=== PATIENT | male | born 1960 | race Caucasian/White ===

== ENCOUNTER 2019-10-31 08:30 | Outpatient (RCR) | payer BC, SELFPAY | END 2019-10-31 08:35 | disposition home or self-care (01) | LOC: PT 08:30 | PROVIDERS: Visit Provider Orthopaedic Surgery | DX: M54.5 Low back pain (principal); M51.36 Other intervertebral disc degeneration, lumbar region; M19.90 Unspecified osteoarthritis, unspecified site | CPT/HCPCS: 20560; 20561; 97010; 97014; 97035; 97110; 97140; 97163; G0283 ==

== ENCOUNTER 2021-03-25 17:00 | Emergency (ER) | payer BC, SELFPAY ==
[2021-03-25 17:30] VITALS: BP 138/75; PULSE 86; RESP 19; TEMP 36.8; O2SAT 97; BMI 38.6
--- NOTE | 2021-03-25 18:14 | HMH.EDUTC ---
[facility] [place] Clinical Impression: Foot ulcer Qualifiers: Laterality: right Non-pressure ulcer stage: unspecified non-pressure ulcer stage Qualified Code(s): L97.519 - Non-pressure chronic ulcer of other part of right foot with unspecified severity Disposition: Home, Self-Care Condition on Discharge: Good Instructions: DI for Diabetic Foot Ulcer, Diabetic Foot Ulcer, Clindamycin Additional Instructions: Clean foot well as directed and apply betadine bandage daily as you was instructed in the [facility] Follow up with your Family Doctor and Podiatry as you was instructed call tomorrow for appointment Return if needed Straight to ER if any life threatening symptoms Avoid tight fitting shoes Prescriptions: clindamycin HCL [Clindamycin HCl] 300 mg PO TID 10 Days #30 cap Transmission Status: Pending to [email or web address] #[id number] Referrals: Provider,Referral, [Primary Care Provider] - As needed Cydney Bland DPM [Staff Physician] - Time of Disposition: 18:31 Medical Decision Making - Anish Inquiry Pt receiving controlled substance: No Anish was queried for this patient: No Vital Signs: 03/25/21 17:30 Temperature 98.3 F Temperature Source Oral Pulse Rate [Right Brachial] 86 Respiratory Rate 19 Blood Pressure [Right Arm] 138/75 Blood Pressure Mean [Right Arm] 96 Blood Pressure Source [Right Arm] Automatic Cuff Blood Pressure Position [Right Arm] Sitting 02 Sat by Pulse Oximetry 97 Oxygen Delivery Method Room Air Medical Decision Narrative: Ulcer area on foot cleaned well and betadine soaked bandage placed on open blister like lesion and then secured in place with kerlix patient verbalized understanding of how to bandage foot [facility] - General Stated complaint: foot ulcer Time Seen by Provider: 03/25/21 18:00 Mode of Arrival: Ambulatory Source of Information: Patient Limitations: No Limitations Description of Symptoms (Recalled from Triage Doc. by RN): PATIENT C/O SORE TO RIGHT FOOT THAT HE NOTICED THIS MORNING. PATIENT STATES THAT HE IS DIABETIC HEENT Symptoms (Recalled from RN notes): No Resp Symptoms (Recalled from RN notes): No Skin Symptoms (Recalled from RN notes): Yes MS Symptoms (Recalled from RN notes): No Functional Status (Recalled from RN notes): WNL - History of Present Illness Provider Complaint: Patient state that he is a diabetic and he tries to watch his feet for ulcers States that he noticed that he had an open blister like area on the side of his right foot below little toe States that area is not draining but he was concerned and wanted to come in and get some antibitoics until he can get into his PCP or Podiatry - Related Data Previous Rx's Medication Instructions Recorded clindamycin HCL [Clindamycin HCl] 300 mg PO TID 10 Days #30 cap 03/25/21 Allergies Allergy/AdvReac Type Severity Reaction Status Date / Time aspirin Allergy Verified 03/25/21 18:03 - Worker's Comp Is this a Worker's Comp case?: No [facility] History - Hepatitis A Screen Drug use history?: No High risk sexual behaviors?: No History of sexually transmitted infection?: No Currently employed?: No Childcare worker?: No Do you have indoor plumbing?: Yes Do you have electricity?: Yes Attestation statement:: This patient has been screened for Hepatitis A risk factors. I have reviewed the patient's past medical history: Yes ROS Obtained: Yes All systems reviewed & no additional complaints, Yes Systems reviewed as appropriate & no additional complaints - Constitutional Constitutional: Reports system reviewed and no additional complaints, except as docu, Denies body ache, Denies chills, Denies fever(s) - ENT Ears, Nose, Mouth, and Throat: Reports system reviewed and no additional complaints, except as docu - Cardiovascular Cardiovascular: Reports system reviewed and no additional complaints, except as docu - Respiratory Respiratory: Reports system reviewed and no additional complaints, except as
[2021-03-25 18:34] VITALS: BP 138/75; PULSE 86; RESP 19; TEMP 36.8; O2SAT 97
== END 2021-03-25 18:44 | disposition home or self-care (01) ==
PROVIDERS: Emergency Provider Nurse Practitioner
DX: E11.621 Type 2 diabetes mellitus with foot ulcer (principal); L97.411 Non-pressure chronic ulcer of right heel and midfoot limited to breakdown of skin
CPT/HCPCS: 99202; G0463

== ENCOUNTER → 2021-09-08 14:36 | Outpatient (CLI) | payer BC, SELFPAY ==
[2021-09-08 16:24] LABS: Thyroid Stimulating Hormone 5.89 uIU/mL (0.465-4.68)
== END ==
PROVIDERS: Visit Provider Internal Medicine
DX: E03.9 Hypothyroidism, unspecified (principal)
CPT/HCPCS: 36415; 84443

== ENCOUNTER → 2022-02-03 10:12 | Outpatient (CLI) | payer BC, SELFPAY ==
[2022-02-03 11:10] LABS: Basophils # 0.1 K/mm3 (0-0.2); Basophils % 0.4 % (0.1-2.0); Eosinophils # 0.4 K/mm3 (0.0-0.4); Eosinophils % 3.9 % (0.1-12.0); Hematocrit 41.1 % (42.0-52.0); Hemoglobin 13.3 g/dL (14.1-18.0); Lymphocytes # 1.1 K/mm3 (0.7-4.5); Lymphocytes % 10.4 % (10-50); Mean Corpuscular HGB Conc 32.3 g/dL (31.8-35.4); Mean Corpuscular Hemoglobin 29.5 pg (27.0-31.2); Mean Corpuscular Volume 91.2 fl (80-94); Mean Platelet Volume 7.8 fl (7.4-10.4); Monocytes # 0.5 K/mm3 (0.1-1.0); Monocytes % 4.6 % (1.7-9.3); Neutrophils # 8.6 K/mm3 (1.8-7.8); Neutrophils % 80.7 % (37.0-80.0); Platelet Count 261 K/mm3 (142-424); Red Blood Count 4.51 M/mm3 (4.60-6.20); Red Cell Distribution Width 13.7 % (11.5-17.5); White Blood Count 10.7 K/mm3 (4.8-10.8)
[2022-02-03 11:30] LABS: Albumin Level 3.7 g/dl (3.5-5.0); Blood Urea Nitrogen 31 mg/dl (9-20); Calcium 8.6 mg/dl (8.4-10.2); Carbon Dioxide 25 mmol/L (22.0-30.0); Chloride 103 mmol/L (98-107); Estimated Glomerular Filt Rate 29 ml/min (>60); GFR (African American) 35 ML/MIN (>60); Glucose 258 mg/dl (74-100); Phosphorous 3.8 mg/dl (2.5-4.5); Sodium 139 mmol/L (136-145)
[2022-02-03 11:39] LABS: Intact Parathyroid Hormone 123.7 pg/mL (7.5-53.5)
[2022-02-03 12:18] LABS: Creatinine,Urine Random 84 mg/dL (Not Estab.)
[2022-02-03 12:21] LABS: Microalbumin/Creatinine Ratio 208.6
[2022-02-03 13:20] LABS: 25-OH Vitamin D, Total 19.4 ng/mL (30-100)
== END ==
PROVIDERS: Visit Provider Internal Medicine Nephrology
DX: N18.4 Chronic kidney disease, stage 4 (severe) (principal)
CPT/HCPCS: 36415; 80069; 82043; 82306; 82570; 83970; 85025

== ENCOUNTER → 2022-02-08 14:01 | Outpatient (POV) | payer BC, SELFPAY | PROVIDERS: Visit Provider Internal Medicine Nephrology | DX: Z00.00 Encounter for general adult medical examination without abnormal findings (principal) ==

== ENCOUNTER → 2022-06-09 12:35 | Outpatient (CLI) | payer BC, SELFPAY ==
[2022-06-09 13:37] LABS: Albumin Level 3.8 g/dl (3.5-5.0); Anion Gap 13.3 mEq/L (5-15); Blood Urea Nitrogen 43 mg/dl (9-20); Calcium 8.3 mg/dl (8.4-10.2); Carbon Dioxide 20 mmol/L (22.0-30.0); Chloride 108 mmol/L (98-107); Estimated Glomerular Filt Rate 28 ml/min (>60); GFR (African American) 34 ML/MIN (>60); Glucose 297 mg/dl (74-100); Phosphorous 4.5 mg/dl (2.5-4.5); Potassium 5.3 mmoL/L (3.5-5.1); Sodium 136 mmol/L (136-145)
[2022-06-09 13:54] LABS: 25-OH Vitamin D, Total 56.6 ng/mL (30-100)
== END ==
PROVIDERS: PCP Internal Medicine Nephrology; Visit Provider Internal Medicine Nephrology
DX: N18.32 Chronic kidney disease, stage 3b (principal); I10 Essential (primary) hypertension; D63.8 Anemia in other chronic diseases classified elsewhere; N25.0 Renal osteodystrophy
CPT/HCPCS: 36415; 80069; 82306

== ENCOUNTER → 2022-06-14 11:30 | Outpatient (POV) | payer BC, SELFPAY | PROVIDERS: Visit Provider Internal Medicine Nephrology | DX: Z00.00 Encounter for general adult medical examination without abnormal findings (principal) ==

== ENCOUNTER → 2022-09-13 10:09 | Outpatient (POV) | payer BC, SELFPAY | PROVIDERS: Visit Provider Nurse Practitioner | DX: Z00.00 Encounter for general adult medical examination without abnormal findings (principal) ==

== ENCOUNTER 2023-06-09 11:39 | Outpatient (CLI) | payer MEDICARE, BC, SELFPAY ==
[2023-06-09 11:55] LABS: Microscopic, Urine URINE MICROSCOPIC (MICROSCOPIC)
[2023-06-09 12:13] LABS: Hematocrit 46.4 % (42.0-52.0); Mean Corpuscular HGB Conc 32.3 g/dL (31.8-35.4); Mean Corpuscular Hemoglobin 30.2 pg (27.0-31.2); Mean Corpuscular Volume 93.6 fl (80-94); Platelet Count 247 K/mm3 (142-424); Red Blood Count 4.96 M/mm3 (4.60-6.20); White Blood Count 9.9 K/mm3 (4.8-10.8)
[2023-06-09 12:15] LABS: Appearance,Urine CLEAR (Clear); Bilirubin,Urine Negative (Negative); Blood, Urine Negative (Negative); Color,Urine YELLOW (Yellow); Glucose,Urine (UA) 3+ (Negative); Ketones,Urine Negative (Negative); Leukocyte Esterase,Urine Negative (Negative); Nitrate,Urine Negative (Negative); Protein,Urine TRACE (Negative); Specific Gravity, Urine 1.015 (1.005-1.030); Urobilinogen,Urine 0.2 EU/dl (0.2)
[2023-06-09 12:26] LABS: Bacteria,Urine Trace /lpf; Squamous Epithelial Cell,Urine Occasional #/hpf (0-5)
[2023-06-09 12:43] LABS: Albumin Level 3.9 g/dl (3.5-5.0); Anion Gap 11.4 mEq/L (5-15); Blood Urea Nitrogen 35 mg/dl (9-20); Carbon Dioxide 27 mmol/L (22.0-30.0); Chloride 107 mmol/L (98-107); Estimated Glomerular Filt Rate 26 ml/min (>60); GFR (African American) 32 ML/MIN (>60); Glucose 154 mg/dl (74-100); Phosphorous 4.3 mg/dl (2.5-4.5); Potassium 4.4 mmoL/L (3.5-5.1); Sodium 141 mmol/L (136-145)
[2023-06-09 12:48] LABS: Creatinine,Urine Random 82 mg/dL (Not Estab.); Microalbumin/Creatinine Ratio 253.4
[2023-06-09 12:54] LABS: Intact Parathyroid Hormone 118.6 pg/mL (7.5-53.5)
[2023-06-09 12:59] LABS: 25-OH Vitamin D, Total 86.4 ng/mL (30-100)
== END 2023-06-09 23:59 | disposition home or self-care (01) ==
LOC: LAB 11:40
PROVIDERS: Visit Provider Nurse Practitioner
DX: N18.32 Chronic kidney disease, stage 3b (principal)
CPT/HCPCS: 36415; 80069; 81001; 82043; 82306; 82570; 83970; 84155; 85014; 85018; 85048; 85049

== ENCOUNTER 2023-08-30 12:44 | Outpatient (CLI) | payer MEDICARE, BC, SELFPAY ==
[2023-08-30 13:39] LABS: Chol/HDL Ratio 3.8 (1-3.5); Cholesterol 139 mg/dl (140-200); HDL Cholesterol 37 mg/dl (40-60); Triglycerides 143 mg/dl (30-150); VLDL Cholesterol 29 mg/dL (0-40)
[2023-08-30 13:50] LABS: Direct LDL Cholesterol 69.12 mg/dL (100-129)
== END 2023-08-30 23:59 | disposition home or self-care (01) ==
LOC: LAB 12:45
PROVIDERS: Visit Provider Nurse Practitioner Family
DX: E11.69 Type 2 diabetes mellitus with other specified complication (principal); Z79.4 Long term (current) use of insulin
CPT/HCPCS: 36415; 80061

== ENCOUNTER 2023-10-05 10:50 | Outpatient (CLI) | payer MEDICARE, BC, SELFPAY ==
[2023-10-05 10:58] LABS: Microscopic, Urine URINE MICROSCOPIC (MICROSCOPIC)
[2023-10-05 11:18] LABS: Appearance,Urine CLEAR (Clear); Bilirubin,Urine Negative (Negative); Blood, Urine Negative (Negative); Color,Urine YELLOW (Yellow); Glucose,Urine (UA) 3+ (Negative); Ketones,Urine Negative (Negative); Leukocyte Esterase,Urine Negative (Negative); Nitrate,Urine Negative (Negative); PH,Urine 5.5 (5.0-8.5); Protein,Urine Negative (Negative); Specific Gravity, Urine 1.015 (1.005-1.030); Urobilinogen,Urine 0.2 EU/dl (0.2)
[2023-10-05 11:28] LABS: Bacteria,Urine Trace /lpf; Squamous Epithelial Cell,Urine Occasional #/hpf (0-5)
[2023-10-05 11:29] LABS: Creatinine,Urine Random 86 mg/dL (Not Estab.)
[2023-10-05 11:32] LABS: Microalbumin/Creatinine Ratio 94.5
[2023-10-05 11:39] LABS: Chloride 109 mmol/L (98-107); Potassium 5.8 mmoL/L (3.5-5.1); Sodium 137 mmol/L (136-145)
[2023-10-05 11:40] LABS: Albumin Level 3.6 g/dl (3.5-5.0)
[2023-10-05 11:42] LABS: Anion Gap 13.8 mEq/L (5-15); Blood Urea Nitrogen 45 mg/dl (9-20); Calcium 8.3 mg/dl (8.4-10.2); Carbon Dioxide 20 mmol/L (22.0-30.0); Estimated Glomerular Filt Rate 24 ml/min (>60); GFR (African American) 29 ML/MIN (>60); Glucose 217 mg/dl (74-100)
[2023-10-05 12:08] LABS: Hematocrit 42.1 % (42.0-52.0); Hemoglobin 13.4 g/dL (14.1-18.0); Mean Corpuscular HGB Conc 31.9 g/dL (31.8-35.4); Mean Corpuscular Hemoglobin 29.9 pg (27.0-31.2); Mean Corpuscular Volume 93.8 fl (80-94); Platelet Count 199 K/mm3 (142-424); Red Blood Count 4.49 M/mm3 (4.60-6.20); Red Cell Distribution Width 14.6 % (11.5-17.5); White Blood Count 8.9 K/mm3 (4.8-10.8)
== END 2023-10-05 23:59 | disposition home or self-care (01) ==
LOC: LAB 10:51
PROVIDERS: Visit Provider Nurse Practitioner
DX: N18.4 Chronic kidney disease, stage 4 (severe) (principal)
CPT/HCPCS: 36415; 80069; 81001; 82043; 82570; 84156; 85014; 85018; 85048; 85049

== ENCOUNTER 2024-02-13 11:02 | Outpatient (CLI) | payer MEDICARE, BC, SELFPAY ==
[2024-02-13 12:07] LABS: Hemoglobin 14.3 g/dL (14.1-18.0); Mean Corpuscular HGB Conc 34.9 g/dL (31.8-35.4); Mean Corpuscular Hemoglobin 31.4 pg (27.0-31.2); Mean Corpuscular Volume 89.8 fl (80-94); Platelet Count 213 K/mm3 (142-424); Red Blood Count 4.56 M/mm3 (4.60-6.20); Red Cell Distribution Width 14.2 % (11.5-17.5); White Blood Count 8.8 K/mm3 (4.8-10.8)
[2024-02-13 12:25] LABS: Chloride 108 mmol/L (98-107)
[2024-02-13 12:26] LABS: Albumin Level 3.8 g/dl (3.5-5.0); Potassium 4.8 mmoL/L (3.5-5.1); Sodium 139 mmol/L (136-145)
[2024-02-13 12:28] LABS: Blood Urea Nitrogen 45 mg/dl (9-20); Estimated Glomerular Filt Rate 23 ml/min (>60); GFR (African American) 28 ML/MIN (>60)
[2024-02-13 12:29] LABS: Anion Gap 18.8 mEq/L (5-15); Calcium 8.5 mg/dl (8.4-10.2); Carbon Dioxide 17 mmol/L (22.0-30.0); Glucose 184 mg/dl (74-100); Phosphorous 4.4 mg/dl (2.5-4.5)
[2024-02-13 13:33] LABS: Microscopic, Urine URINE MICROSCOPIC (MICROSCOPIC)
[2024-02-13 14:58] LABS: Appearance,Urine CLEAR (Clear); Bilirubin,Urine Negative (Negative); Blood, Urine Negative (Negative); Color,Urine YELLOW (Yellow); Glucose,Urine (UA) 3+ (Negative); Ketones,Urine Negative (Negative); Leukocyte Esterase,Urine Negative (Negative); Nitrate,Urine Negative (Negative); PH,Urine 5.5 (5.0-8.5); Protein,Urine Negative (Negative); Specific Gravity, Urine 1.015 (1.005-1.030); Urobilinogen,Urine 0.2 EU/dl (0.2)
== END 2024-02-13 23:59 | disposition home or self-care (01) ==
PROVIDERS: Visit Provider Nurse Practitioner
DX: R79.9 Abnormal finding of blood chemistry, unspecified (principal); I10 Essential (primary) hypertension
CPT/HCPCS: 80069; 81001; 82043; 84156; 85027

== ENCOUNTER 2024-08-02 16:26 | Outpatient (CLI) | payer MEDICARE, BC, SELFPAY ==
[2024-08-02 17:17] LABS: Hematocrit 42.6 % (42.0-52.0); Hemoglobin 14.1 g/dL (14.1-18.0); Mean Corpuscular HGB Conc 33.1 g/dL (31.8-35.4); Mean Corpuscular Hemoglobin 30.4 pg (27.0-31.2); Mean Corpuscular Volume 91.8 fl (80-94); Nucleated Red Blood Cells # 0 10^3/uL; Nucleated Red Blood Cells % 0 %; Platelet Count 254 K/mm3 (142-424); Red Blood Count 4.64 M/mm3 (4.60-6.20); Red Cell Distribution Width 13.4 % (11.5-17.5); Red Cell Distribution Width-SD 45.2 fL; White Blood Count 9.1 K/mm3 (4.8-10.8)
[2024-08-02 17:55] LABS: Appearance,Urine CLEAR (Clear); Bilirubin,Urine Negative (Negative); Blood, Urine NEGATIVE (Negative); Color,Urine YELLOW (Yellow); Glucose,Urine (UA) 3+ (Negative); Ketones,Urine Negative (Negative); Leukocyte Esterase,Urine NEGATIVE (Negative); Nitrate,Urine NEGATIVE (Negative); PH,Urine 5.5 (5.0-8.5); Protein,Urine NEGATIVE (Negative); Urobilinogen,Urine 0.2 EU/dl (0.2)
[2024-08-02 19:07] LABS: Albumin Level 3.7 g/dl (3.5-5.0); Anion Gap 13.4 mEq/L (5-15); Blood Urea Nitrogen 39 mg/dl (9-20); Calcium 8.8 mg/dl (8.4-10.2); Carbon Dioxide 19 mmol/L (22.0-30.0); Chloride 113 mmol/L (98-107); Estimated Glomerular Filt Rate 24 ml/min (>60); GFR (African American) 29 ML/MIN (>60); Glucose 122 mg/dl (74-100); Phosphorous 3.9 mg/dl (2.5-4.5); Potassium 5.4 mmoL/L (3.5-5.1); Sodium 140 mmol/L (136-145)
[2024-08-02 19:19] LABS: Intact Parathyroid Hormone 127.2 pg/mL (7.5-53.5)
[2024-08-02 19:31] LABS: 25-OH Vitamin D, Total 96.6 ng/mL (30-100)
[2024-08-02 19:40] LABS: Creatinine,Urine Random 79 mg/dL (Not Estab.)
== END 2024-08-02 23:59 | disposition home or self-care (01) ==
LOC: LAB 16:28
PROVIDERS: Visit Provider Nurse Practitioner
DX: N18.4 Chronic kidney disease, stage 4 (severe) (principal)
CPT/HCPCS: 36415; 80069; 81003; 82306; 82570; 83970; 84156; 85027

== ENCOUNTER 2024-10-11 09:54 | Outpatient (CLI) | payer MEDICARE, BC, SELFPAY ==
--- OUTSIDE RECORDS SUMMARY | 2024-10-10 11:20 | XMS_ITS | Encounter Summary ---
Author Organization [facility] Address [address] [place] [address] Care Team Providers Care Plier Worker Name Role Phone Pcp, No Primary Care Provider Unavailabl e Reason for Referral * Consultation (Routine) - Authorized Specialty Diagnoses / Procedures Referred By Contac t Referred To Contact Diagnoses Type 2 diabetes mellitus with other specified complication, without long-term current use of insulin (CMS/HCC) Evelin Johnson MD [address] [address] Phone: tel: fax: Referral ID Status Reason Start Date Expiration Date V isits Requested Visits Authorized [id number] Authorized 10/10/2024 04/11/2026 1 1 Reason for Visit * Reason Comments Type 2 diabetes mellitus with other spec ified complication, Encounter Details Date Type Department Care Team (Late st Contact Info) Description 10/10/2024 11:20 AM EDT Office Visit [facility] Endocrinology [address] [place] [address] Evelin Johnson MD [address] [address] Type 2 diabetes mellitus with other specified complication, without long-term current use of insulin (CMS/HCC) (Primary Dx) Social History Tobacco Use Types Packs/Day Years Used Date Smoking Tobacco: Former Cigarettes Q uit: 1994 Passive Smoke Exposure: Past Smokeless Tobacco: Current Snuff Alcohol Use Standard Drinks/Week Comments Yes 0 (1 standard drink = 0.6 oz pur e alcohol) social. PHQ-2 Answer Date Recorded Patient Health Questionnaire-2 Score 0 03/01/2023 AUDIT-C Answer Date Recorded Q1: How often do you have a drink containing alcohol? 2-3 times a week 10/10/2024 Q2: How many drinks containi ng alcohol do you have on a typical day when you are drinking? Patient does not drink Q3: How often do you have si x or more drinks on one occasion? Never 10/10/2024 PHQ-2A Answer Date Recorded Patient Health Questionnaire-2 Score 0 03/01/2023 Sex and Gender Information Value Date Recorded Sex Assigned at Not on file Legal Sex Male 7:33 PM EDT Gender Identity Not on file Sexual Orientation Not on file documented as of this encounter Last Filed Vital Signs Vital Sign Reading Time Taken Comments Blood Pressure 131/73 10/10/2024 11:14 AM EDT Pulse 81 10/10/2024 11:14 AM EDT Temperature - - Respiratory Rate - - Oxygen Saturation - - Inhaled Oxygen Concentration - - Weight 130 kg (287 lb 7.7 oz) 10/10/2024 11:14 A M EDT Height 182.9 cm (6') 10/10/2024 11:14 AM EDT Body Mass Index 38.99 10/10/2024 11:14 AM EDT documented in this encounter Functional Status * AUDIT-C Score Answer Date of Assessment Author 3 10/10/2024 11:18 AM EDT Nisreen Mata * Question Answer Date of Assessment Author Q1: How often do you have a drink containing alcohol? 2-3 times a week 10/10/2024 11:18 AM EDT Lalita Mata Q2: How many drinks containing alcohol do you have on a typical day when you are drinking? Patient does not drink 10/10/2024 11:18 AM EDT Lalita Mata Q3: How often do you have six or more drinks on one occasion? Never 10/10/2024 11:18 AM EDT Lalita Mata documented as of this encounter Miscellaneous Notes * Progress Notes - Bridgett Blackmon MBBS - 10/10/2024 11:20 AM EDT Chief complaint: DM type 2 and hypotyroidism HPI Luis Laguna is a 63 y.o. male who presents for follow up. No illness or hospitalizations since previous visit. #Diabetes Mellitus type 2: - Diagnosed 2017 - Last visit 04/2024 - Complications include: nephropathy and peripheral neuropathy - A1c today is 5.8 (from 6.4 from 04/2024) - Current treatment includes : - januvia 100mg daily - glimepiride 4mg daily with breakfast- hypoglycemia improved after reducing the dose last visit - farxiga 10 mg daily - Failed/Discontinued meds: premix insulin - does check blood glucose at home, ranging from 100-150s - Hypoglycemia awareness: intact - denies recent hypoglycemic events. - Compliance at present is estimated to be excellent. - Retinopathy Evaluation: Last eye exam was <1 year, no reported DR - Neuropathy Evaluation: Endorses Neuropathy, not currently on medication - Nephropathy: has CKD and nephropathy, followed by nehrology - ASCVD: no stroke or heart attack. Review of Systems Constitutional: Negative for fatigue and unexpected weight change. Eyes: Negative for visual disturbance. Cardiovascular: Negative for palpitations. Gastrointestinal: Negative for abdominal pain, nausea and vomiting. Endocrine: Negative for cold intolerance and heat intolerance. Neurological: Negative for light-headedness and headaches. Psychiatric/Behavioral: Negative for confusion. The following portions of the chart were reviewed this encounter and updated as appropriate: Past Medical History: Diagnosis Date Cellulitis of unspecified part of limb Cellulitis of foot Conversions - Other Cellulitis Conversions - Other Cellulitis Of The Left First Toe Conversions - Other Cellulitis Of The Right Knee Conversions - Other Dependence On Nicotine In Tobacco Product Conversions - Other Sinusitis Conversions - Other Skin Abscess Personal history of other endocrine, nutritional and metabolic disease History of fluid overload Personal history of other endocrine, nutritional and metabolic disease History of hyperkalemia Personal history of other endocrine, nutritional and metabolic disease History of vitamin D deficiency Type 2 diabetes mellitus History reviewed. No pertinent surgical history. Social History Tobacco Use Smoking status: Former Current packs/day: 0.00 Types: Cigarettes Quit date: 1994 Years since quittin.5 Passive exposure: Past Smokeless tobacco: Current Types: Snuff Vaping Use Vaping status: Never Used Substance Use Topics Alcohol use: Yes Comment: social. Drug use: No Comment: Drug use: No illicit drug use Family History Problem Relation Name Age of Onset Brain Tumor Other Breast cancer Mother Diabetes Other Uterine cancer Other Current Outpatient Medications Medication Instructions atorvastatin (LIPITOR) 40 mg, Oral, Nightly carvedilol (COREG) 25 mg, Oral, 2 times daily with meals cholecalciferol (VITAMIN D-3) 5,000 Units, Oral, Daily dapagliflozin (FARXIGA) 10 mg, Oral, Daily glimepiride (AMARYL) 4 mg, Oral, Daily before breakfast glucose blood ([employer] Ultra) test strip USE TO TEST 3 TO 4 TIMES DAILY levothyroxine (SYNTHROID, LEVOXYL) 100 mcg, Oral, Daily, Patient must attend follow-up on 03/01/24 for additional refills. NIFEdipine CC (ADALAT CC) 60 mg, Oral, 2 times daily, Do not crush, chew, or split. pen needle, diabetic (B-D UF III MINI PEN NEEDLES) 31G X 5 MM misc USE 2 PEN NEEDLES DAILY SITagliptin (Januvia) 100 MG tablet TAKE 1 TABLET DAILY sodium bicarbonate 650 mg, Oral, 2 times daily valsartan (DIOVAN) 80 mg, Oral, Daily Visit Vitals BP 131/73 Pulse 81 Ht 1.829 m (6') Wt 130 kg (287 lb 7.7 oz) BMI 38.99 kg/m?? Smoking Status Former BSA 2.57 m?? Physical Exam Constitutional: Appearance: Normal appearance. Eyes: Pupils: Pupils are equal, round, and reactive to light. Cardiovascular: Rate and Rhythm: Normal rate and regular rhythm. Pulses: Normal pulses. Heart sounds: Normal heart sounds. Pulmonary: Effort: Pulmonary effort is normal. Breath sounds: Normal breath sounds. Abdominal: General: Abdomen is flat. Palpations: Abdomen is soft. Musculoskeletal: General: Normal range of motion. Skin: General: Skin is warm. Neurological: General: No focal deficit present. Mental Status: He is alert and oriented to person, place, and time. Recent labs Lab Results Component Value Date HGBA1C 5.8 10/10/2024 Assessment and Plan: Diabetes Mellitis Type 2, is controlled - A1c today is 5.8 (from 6.4 on 04/2024) - Current treatment includes : - januvia 100mg daily - glimepiride 4mg daily with breakfast- hypoglycemia improved after reducing the dose last visit - farxiga 10 mg daily - Failed/Discontinued meds: premix insulin PLAN: No Rx changes. A1c low at 5.8 today with no reported hypoglycemia. However, patient is checking BG at night when he takes meds so may be missing lows during the day. Will have patient check his BG intermittently during the day. IF hypoglycemic events, will decrease medication regimen 2. Obesity Body mass index is 38.99 kg/m??. Encouraged healthy diet and regular exercise 3. HTN - BP at goal this visit. Continue BP meds 4. HL- LDL above goal, will check lipid panel when fasting next visit, continue statin 5. Hypothyroidism- TSH 04/2024 1.6; continue 100 mcg daily RTC in 6 months. Bridgett Blackmon MD Internal Medicine, PGY 3 Cosigned by Evelin Johnson MD at 10/10/2024 11:36 AM EDT Associated attestation - Evelin Johnson MD - 10/10/2024 11:36 AM EDT I saw and evaluated the patient with the resident/fellow. I discussed the case with the resident/fellow and agree with the findings and plan as documented. I personally spent a total of 30 minutes on this encounter. This time includes encounter with patient, counseling, discussion, reviewing chart, interpreting data and/or coordination of care. documented in this encounter Plan of Treatment Upcoming Encounters Date Type Department Care Team (Late st Contact Info) Description 12/21/2024 9:40 AM EDT Office Visit [facility] [address] [place] [address] Neema Apodaca, HEATHER [address] [address] 04/15/2025 11:20 AM EST Office Visit [facility] Endocrinology [facility] [place] [address] Evelin Johnson MD [address] [address] Scheduled Orders Name Type Priority Associated Diagnoses Orde r Schedule Lipid panel Lab Routine Type 2 diabetes mellitus with other specified complication, without long-term current use of insulin (CMS/HCC) Expected: 10/10/2024 (Approximate), Expires: 10/10/2025 Scheduled Referrals Name Type Priority Associated Diagnoses Orde r Schedule Follow Up [facility] Outpatient Referral Routine Type 2 diabetes mellitus with other specified complication, without long-term current use of insulin (CMS/HCC) Expected: 04/12/2025, Expires: 04/13/2026 documented as of this encounter Procedures Procedure Name Priority Date/Time Associated Diagnosis Comments POCT GLYCOSYLATED HEMOGLOBIN (HGB A1C) Routine 10/10/2024 11:25 AM EDT Type 2 diabetes mellitus with other specified complication, without long-term current use of insulin (CMS/[facility]) documented in this encounter Results * POCT glycosylated hemoglobin (Hb A1C) (10/10/2024 11:25 AM EDT) POCT Hemoglobin A1C 5.8 <5.7% Non-Diabet ic % [facility] Kit Lot Number [id number] [facility] Kit Expiration Date 06/2026 [facility] Blood Venous blood specimen / Unknown 10/10/2024 11:25 AM EDT Evelin Johnson MD POINT OF CARE TEST ENTER/EDIT ORDERABLES Final Result [facility] [address] [place] [address] documented in this encounter Visit Diagnoses Diagnosis Type 2 diabetes mellitus with other specified complication, without long-term current use of insulin (CMS/[facility])- Primary documented in this encounter Additional Health Concerns Assessment Noted Time A fall risk assessment has been complete d for the patient 06/13/2023 12:52 PM EST A Body Mass Index follow-up plan has been documented for the patient 10/10/2024 11:36 AM EDT documented as of this encounter Care Teams Plier Worker Relationship Specialty Start Date End Date Pcp, No [address] [place] [address] PCP - General Family Medicine 04/12/24 documented as of this encounter
--- OUTSIDE RECORDS SUMMARY | 2024-10-11 10:00 | XMS_ITS | Encounter Summary ---
Author Organization Healthcare Address [address] [place] [address] Care Team Providers Care Industrial Maintenance Manager Name Role Phone Walter Michael MD Primary Care Provider [phone] Joshua Bee DO Primary Care Provider None, None Primary Care Provider Pcp, No Primary Care Provider Unavailabl e Reason for Visit * Reason Comments Med Refill Encounter Details Date Type Department Care Team (Late st Contact Info) Description 10/05/2022 Refill [facility] Endocrinology [address] [place] [address] Sonia Fong MD [address] [address] Type 2 diabetes mellitus without complication, with long-term current use of insulin ([facility]) Social History Tobacco Use Types Packs/Day Years Used Date Smoking Tobacco: Former Cigarettes Q uit: 1994 Passive Smoke Exposure: Past Smokeless Tobacco: Current Snuff Alcohol Use Standard Drinks/Week Comments No 0 (1 standard drink = 0.6 oz pur e alcohol) PHQ-2 Answer Date Recorded Patient Health Questionnaire-2 Score 0 06/22/2021 Sex and Gender Information Value Date Recorded Sex Assigned at Not on file Legal Sex Male 7:33 PM EDT Gender Identity Not on file Sexual Orientation Not on file documented as of this encounter Miscellaneous Notes * Telephone Encounter - Faby Reese R - 10/05/2022 12:12 PM EDT Per protocol, 1 medication(s), januvia, has been approved for 90 day supply with 0 refill(s) to [facility]. documented in this encounter Plan of Treatment Upcoming Encounters Date Type Department Care Team (Late st Contact Info) Description 12/21/2024 9:40 AM EDT Office Visit [facility] [address] [place] [address] Neema Apodaca, EVP CHIEF EXPLORATION OFFICER [address] [facility] [address] [place] [address] 04/15/2025 11:20 AM EST Office Visit [facility] Endocrinology [address] [place] [address] Evelin Johnson MD [address] [facility] [address] [place] [address] documented as of this encounter Visit Diagnoses Diagnosis Type 2 diabetes mellitus without complication, with long-term current use of insulin documented in this encounter Additional Health Concerns Assessment Noted Time A fall risk assessment has been complete d for the patient 06/18/2022 10:18 AM EST A Body Mass Index follow-up plan has been documented for the patient 09/13/2022 10:46 AM EDT documented as of this encounter Care Teams Industrial Maintenance Manager Relationship Specialty Start Date End Date Walter Michael MD [address] [place] [address] [place] [address] PCP - General Family Medicine 09/26/20 10/11/22 Joshua Bee DO [address] [place] [id number] PCP - General 10/12/22 12/07/22 None, None [address] [place] [address] PCP - General NONE FOUND 03/01/23 11/03/23 Pcp, No [address] [place] [address] PCP - General Family Medicine 04/12/24 documented as of this encounter
--- OUTSIDE RECORDS SUMMARY | 2024-10-11 10:00 | XMS_ITS | Encounter Summary ---
Author Organization Healthcare Address [address] [place] [address] Care Team Providers Care Licensing Director Name Role Phone Walter Michael MD Primary Care Provider [phone] Joshua Bee DO Primary Care Provider None, None Primary Care Provider [phone] Pcp, No Primary Care Provider Unavailabl e Reason for Visit * Reason Comments Med Refill Encounter Details Date Type Department Care Team (Late Contact Info) Description 11/30/2021 Refill [facility] Nephrology, Bone & Mineral Metabolism [address], [address] [place] [address] Levar Allen MD [address] [place] [address] Social History Tobacco Use Types Packs/Day Years Used Date Smoking Tobacco: Former Smokeless Tobacco: Never Alcohol Use Standard Drinks/Week Comments No 0 (1 standard drink = 0.6 oz pur e alcohol) PHQ-2 Answer Date Recorded Patient Health Questionnaire-2 Score 0 06/22/2021 Sex and Gender Information Value Date Recorded Sex Assigned at Not on file Legal Sex Male 7:33 PM EDT Gender Identity Not on file Sexual Orientation Not on file documented as of this encounter Plan of Treatment Upcoming Encounters Date Type Department Care Team (Late Contact Info) Description 12/21/2024 9:40 AM EDT Office Visit [facility] [address] [place] [address] Neema Apodaca, MANAGER DEVELOPMENT [address] [place] [address] 04/15/2025 11:20 AM EST Office Visit [facility] Endocrinology [address] [place] [address] Evelin Johnson MD [address] [facility] [address] [place] [address] documented as of this encounter Visit Diagnoses Not on filedocumented in this encounter Additional Health Concerns Assessment Noted Time A fall risk assessment has been complete d for the patient 06/22/2021 1:43 PM EDT documented as of this encounter Care Teams Licensing Director Relationship Specialty Start Date End Date Walter Michael MD [address] [place] [address] [place] [address] PCP - General Family Medicine 09/26/20 10/11/22 Joshua Bee DO [address] [place], [place] [id number] PCP - General 10/12/22 12/07/22 None, None [address] [place] [address] PCP - General NONE FOUND 03/01/23 11/03/23 Pcp, No [address] [place] [address] PCP - General Family Medicine 04/12/24 documented as of this encounter
--- OUTSIDE RECORDS SUMMARY | 2024-10-11 10:00 | XMS_ITS | Encounter Summary ---
Author Organization Healthcare Address [address] [place] [address] Care Team Providers Care Solar Energy Advisor Name Role Phone Pcp, No Primary Care Provider Unavailabl e Encounter Details Date Type Department Care Team (Latest Contact Info) Description 10/10/2024 Travel Social History Tobacco Use Types Packs/Day Years [...] on file documented as of this encounter Functional Status * AUDIT-C Score Answer Date of Assessment Author 3 10/10/2024 11:18 AM Nisreen Ellsworth * Question Answer Date of Assessment Author Q1: How often do you have a drink containing alcohol? 2-3 times a week 10/10/2024 11:18 AM Lalita Ellsworth Q2: How many drinks containing alcohol do you have on a typical day when you are drinking? Patient does not drink 10/10/2024 11:18 AM EDT Lalita Mata Q3: How often do you have six or more drinks on one occasion? Never 10/10/2024 11:18 AM EDT Lalita Mata documented as of this encounter Plan of Treatment Upcoming Encounters Date Type Department Care Team (Late st Contact Info) Description 12/21/2024 9:40 AM EDT Office Visit [facility] [address] [place] [address] Neema Apodaca, COMPUTER PROGRAMMER [address] [facility] [address] [place] [address] 04/15/2025 11:20 AM EST Office Visit [facility] Endocrinology [address] [place] [address] Evelin Johnson MD [address] [place] [address] documented as of this encounter Visit Diagnoses Not on filedocumented in this encounter Additional Health Concerns Assessment Noted Time A fall risk assessment has been complete d for the patient 06/13/2023 12:52 PM EST A Body Mass Index follow-up plan has been documented for the patient 10/10/2024 11:36 AM EDT documented as of this encounter Care Teams Solar Energy Advisor Relationship Specialty Start Date End Date Pcp, [place] [address] PCP - General Family Medicine 04/12/24 documented as of this encounter
--- OUTSIDE RECORDS SUMMARY | 2024-10-11 10:00 | XMS_ITS | Encounter Summary ---
Author Organization Healthcare Address [address] [place] [address] Care Team Providers Care Sat Instructor Name Role Phone Walter Michael MD Primary Care Provider [phone] Joshua Bee DO Primary Care Provider [phone] None, None Primary Care Provider Pcp, No Primary Care Provider Unavailabl e Reason for Visit * Reason Comments Med Refill Encounter Details Date Type Department Care Team (Late Contact Info) Description 04/08/2022 [facility] [address] [place] [address] Sonia Fong MD [address] [address] Type 2 diabetes mellitus without complication, with long-term current use of insulin ([facility]) (Primary Dx) Social History Tobacco Use Types [...] Description 12/21/2024 9:40 AM EDT Office Visit [facility] [address] [place] [address] Neema Apodaca, WALLPAPER INSTALLER [address] [facility] [address] [place] [address] 04/15/2025 11:20 AM EST Office Visit [facility] Endocrinology [address] [place] [address] Evelin Johnson MD 2195 [facility] 125 [place] [address] documented as of this encounter Visit Diagnoses Diagnosis Type 2 diabetes mellitus without complication, with long-term current use of insulin- Primary documented in this encounter Additional Health Concerns Assessment Noted Time A fall risk assessment has been complete d for the patient 06/22/2021 1:43 PM EDT documented as of this encounter Care Teams Sat Instructor Relationship Specialty Start Date End Date Walter Michael MD [address] [place] [address] Dr Tenorio [place] [id number] PCP - General Family Medicine 09/26/20 10/11/22 Joshua Bee DO [address] [place] [address] PCP - General 10/12/22 12/07/22 None, None [address] [place] [address] PCP - General NONE FOUND 03/01/23 11/03/23 Pcp, No [address] [place] [address] PCP - General Family Medicine 04/12/24 documented as of this encounter
--- OUTSIDE RECORDS SUMMARY | 2024-10-11 10:00 | XMS_ITS | Encounter Summary ---
Author Organization Healthcare Address [address] [place] [address] Care Team Providers Care Meter Repair Shop Supervisor Name Role Phone Walter Michael MD Primary Care Provider [phone] Joshua Bee DO Primary Care Provider [phone] None, None Primary Care Provider [phone] Pcp, No Primary Care Provider Unavailabl e Reason for Visit * Reason Comments Med Refill Encounter Details Date Type Department Care Team (Late Contact Info) Description 11/19/2021 [facility] [address] [place] [address] Sonia Fong MD 2195 [facility] 125 [place] [address] Social History Tobacco Use Types Packs/Day Years [...] Description 12/21/2024 9:40 AM EDT Office Visit [facility] [address] [place] [address] Neema Apodaca, DYE TUB TENDER [address] [facility] [address] [place] [address] 04/15/2025 11:20 AM EST Office Visit [facility] Endocrinology [address] [place] [address] Evelin Johnson MD [address] [place] [address] documented as of this encounter Visit Diagnoses Not on filedocumented in this encounter Additional Health Concerns Assessment Noted Time A fall risk assessment has been complete d for the patient 06/22/2021 1:43 PM EDT documented as of this encounter Care Teams Meter Repair Shop Supervisor Relationship Specialty Start Date End Date Walter Michael MD [address] [place] [address] [place] [address] PCP - General Family Medicine 09/26/20 10/11/22 Joshua Bee DO [address] [place], [place] [id number] PCP - General 10/12/22 12/07/22 None, None [address] [place] [address] PCP - General NONE FOUND 03/01/23 11/03/23 Pcp, No [address] [place] [address] PCP - General Family Medicine 04/12/24 documented as of this encounter
--- OUTSIDE RECORDS SUMMARY | 2024-10-11 10:00 | XMS_ITS | Encounter Summary ---
Author Organization Healthcare Address [address] [place] [address] Care Team Providers Care Process Tank Tender Name Role Phone Walter Michael MD Primary Care Provider [phone] Joshua Bee DO Primary Care Provider None, None Primary Care Provider Pcp, No Primary Care Provider Unavailabl e Reason for Visit * Reason Comments Med Refill Encounter Details Date Type Department Care Team (Late Contact Info) Description 04/13/2021 [facility] [address] [place] [address] Sonia Fong MD 2195 [facility] [address] [place] [address] Social History Tobacco Use Types Packs/Day Years Used Date Smoking Tobacco: Former Smokeless Tobacco: Never Alcohol Use Standard Drinks/Week Comments No 0 (1 standard drink = 0.6 oz pur e alcohol) Sex and Gender Information Value Date Recorded Sex Assigned at Not on file Legal Sex Male 7:33 PM EDT Gender Identity Not on file Sexual Orientation Not on file documented as of this encounter Plan of Treatment Upcoming Encounters Date Type Department Care Team (Late Contact Info) Description 12/21/2024 9:40 AM EDT Office Visit [facility] [address] [place] [address] Neema Apodaca, SPORTS COMPLEX ATTENDANT [address] [facility] [address] [place] [address] 04/15/2025 11:20 AM EST [facility] [address] [address] Evelin Johnson MD [address] [address] documented as of this encounter Visit Diagnoses Not on filedocumented in this encounter Additional Health Concerns Assessment Noted Time A fall risk assessment has been complete d for the patient 01/21/2021 9:11 AM EDT documented as of this encounter Care Teams Process Tank Tender Relationship Specialty Start Date End Date Walter Michael MD [address] [place] [address] Dr Tenorio [place] [id number] PCP - General Family Medicine 09/26/20 10/11/22 Joshua Bee DO [address] [place] [id number] PCP - General 10/12/22 12/07/22 None, None [address] [place] [address] PCP - General NONE FOUND 03/01/23 11/03/23 Pcp, No [address] [place] [address] PCP - General Family Medicine 04/12/24 documented as of this encounter
--- OUTSIDE RECORDS SUMMARY | 2024-10-11 10:00 | XMS_ITS | Encounter Summary ---
Author Organization Healthcare Address [address] [place] [address] Care Team Providers Care Service Person Name Role Phone Walter Michael MD Primary Care Provider [phone] Joshua Bee DO Primary Care Provider None, None Primary Care Provider [phone] Pcp, No Primary Care Provider Unavailabl e Reason for Visit * Reason Comments Med Refill Encounter Details Date Type Department Care Team (Late Contact Info) Description 01/13/2021 Refill [facility] Endocrinology [address] [place] [address] Sonia Fong MD [address] [address] Social History Tobacco Use Types Packs/Day Years Used Date Smoking Tobacco: Former Smokeless Tobacco: Never Alcohol Use Standard Drinks/Week Comments No 0 (1 standard drink = 0.6 oz pur e alcohol) Sex and Gender Information Value Date Recorded Sex Assigned at Not on file Legal Sex Male 7:33 PM EDT Gender Identity Not on file Sexual Orientation Not on file COVID-19 Exposure Response Date Recorded In the last month, have you been in contact with someone who was confirmed or suspected to have Coronavirus / COVID-19? No / Unsure 12/22/2020 1:06 PM EDT documented as of this encounter Plan of Treatment Upcoming Encounters Date Type Department Care Team (Late Contact Info) Description 12/21/2024 9:40 AM EDT Office Visit [facility] [address] [place] [address] Neema Apodaca, INTERPRETIVE NATURALIST [address] [facility] 401 [place] [address] 04/15/2025 11:20 AM EST [facility] 2[address] [place] [address] Evelin Johnson MD 2195 [facility] 125 [place] [address] documented as of this encounter Visit Diagnoses Not on filedocumented in this encounter Care Teams Service Person Relationship Specialty Start Date End Date Walter Michael MD [address] [place] [address] PCP - General Family Medicine 09/26/20 10/11/22 Joshua Bee DO 800 [place], [place] [id number] PCP - General 10/12/22 12/07/22 None, None [address] [place] [address] PCP - General NONE FOUND 03/01/23 11/03/23 Pcp, No 800 [place] [address] PCP - General Family Medicine 04/12/24 documented as of this encounter
--- OUTSIDE RECORDS SUMMARY | 2024-10-11 10:00 | XMS_ITS | Clinical Summary ---
Author Organization [facility] Address [address] [place] [address] Care Team Providers Care Lion Trainer Name Role Phone Pcp, No Primary Care Provider Unavailabl e Allergies Active Allergy Reactions Criticality Noted Date Comments Aspirin Other - please docum ent in the comment field,Rash Low 02/16/2013 Chlorthalidone Itching Medium 08/03/2024 Medications glimepiride (Amaryl) 4 MG tabletIndications :Type 2 diabetes mellitus with other specified complication, without long-term current use of insulin (CMS/HCC) Take 1 tablet (4 mg) by mouth 1 (one) time each day before breakfast. 90 tablet 3 5 Active SITagliptin (Januvia) 100 MG tabletIndications :Type 2 diabetes mellitus with other specified complication, without long-term current use of insulin (CMS/HCC) TAKE 1 TABLET DAILY 90 tablet 3 5 Active levothyroxine (Synthroid, Levoxyl) 100 MCG tabletIndications :Hypothyroidism, unspecified type Take 1 tablet (100 mcg) by mouth 1 (one) time each day. Patient must attend follow-up on 03/01/24 for additional refills. 90 tablet 3 5 Active glucose blood (OneTouch Ultra) test stripIndications: Type 2 diabetes mellitus without complication, with long-term current use of insulin USE TO TEST 3 TO 4 TIMES DAILY 400 strip 1 5 Active pen needle, diabetic (B-D UF III MINI PEN NEEDLES) 31G X 5 MM miscIndications:T ype 2 diabetes mellitus without complication, with long-term current use of insulin USE 2 PEN NEEDLES DAILY 200 each 1 5 Active cholecalciferol (Vitamin D-3) 125 MCG (5000 UT) capsule Take 1 capsule by mouth daily. 30 capsule 11 5 08/04/19 Active atorvastatin (Lipitor) 40 MG tabletIndications :Type 2 diabetes mellitus with other specified complication, without long-term current use of insulin ([facility]) Take 1 tablet by mouth nightly. 90 tablet 3 5 08/04/19 26 Active dapagliflozin (Farxiga) 10 MG tablet Take 1 tablet by mouth daily. 90 tablet 3 5 Active NIFEdipine CC (Adalat CC) 60 MG 24 hr tablet Take 1 tablet by mouth 2 times a day. Do not crush, chew, or split. 180 tablet 5 08/04/19 26 Active valsartan (Diovan) 80 MG tabletIndications :Essential (primary) hypertension Take 1 tablet by mouth daily. 30 tablet 5 Active carvedilol (Coreg) 25 MG tablet Take 1 tablet by mouth 2 times a day with meals. 180 tablet 5 08/04/19 Active sodium bicarbonate 650 MG tabletIndications :CKD (chronic kidney disease) stage 4, GFR 15-29 ml/min ([facility]),Metabol ic acidosis Take 1 tablet by mouth 2 times a day. 60 tablet 5 08/04/19 Active Active Problems Problem Noted Date Diagnosed Date Neuropathy 08/30/2023 Obesity (BMI 35.0-39.9 without comorbidity) 06/09 Severe obesity (BMI 35.0-39.9) with comorbidity 06/18/2022 Type 2 diabetes mellitus, [facility] long-term current use of insulin 06/18/2022 Abnormal thyroid blood test 06/18/2022 Vitamin D deficiency 08/21/2020 Venous stasis 06/28/2019 Tobacco chew use 06/23/2019 CKD (chronic kidney disease) stage 3, GFR 30-59 ml/min 02/23/2017 Proteinuria 01/11/2017 Diabetes mellitus type 2 with neurological manif estations 02/21/2013 Hypothyroidism 02/16/2013 Hyperlipidemia 02/16/2013 Essential (primary) hypertension 02/16/2013 Encounters Date Type Department Care Team Description 10/10/2024 11:20 AM EDT Office Visit [facility] Endocrinology [address] [place] [address] Evelin Johnson MD Type 2 diabetes mellitus with other specified complication, without long-term current use of insulin (CMS/HCC) (Primary Dx) 10/10/2024 Travel 08/03/2024 8:40 AM EDT Office Visit [facility] [address] [place] [address] Neema Apodaca APRN CKD (chronic kidney disease) stage 4, GFR 15-29 ml/min (CMS/HCC) (Primary Dx); Anemia in other chronic diseases classified elsewhere; Essential (primary) hypertension; Persistent proteinuria; Renal osteodystrophy; Type 2 diabetes mellitus with hyperglycemia, with long-term current use of insulin (CMS/HCC); Hyperkalemia; Type 2 diabetes mellitus with other specified complication, without long-term current use of insulin ([facility]/HCC); Metabolic acidosis 08/03/2024 Travel from Last 3 Months Immunizations Immunization Administration Dates Next Due Influenza, injectable, quadrivalent, preservativ e free 06/28/2019 Family History Medical History Relation Name Comments Breast cancer Mother Brain Tumor Other 1 Diabetes Other 2 Uterine cancer Other 3 Relation Name Status Comments Mother Other 1 Other 2 Other 3 Social History Tobacco Use Types Packs/Day Years Used Date Smoking Tobacco: Former Cigarettes Q uit: 1994 Passive Smoke Exposure: Past Smokeless Tobacco: Current Snuff Tobacco Cessation:Ready to Q uit: Not Asked; Counseling Given: Not Answered Alcohol Use Standard Drinks/Week Comments Yes 0 [...] on file Sexual Orientation Not on file Last Filed Vital Signs Vital Sign Reading Time Taken Comments Blood Pressure 131/73 10/10/2024 11:14 AM EDT Pulse 81 10/10/2024 11:14 AM EDT Temperature - - Respiratory Rate 18 08/03/2024 8:40 AM EDT Oxygen Saturation 98% 08/03/2024 8:40 AM EDT Inhaled Oxygen Concentration - - Weight 130 kg (287 lb 7.7 oz) 10/10/2024 11:14 A M EDT Height 182.9 cm (6') 10/10/2024 11:14 AM EDT Body Mass Index 38.99 10/10/2024 11:14 AM EDT Plan of Treatment Upcoming Encounters Date Type Department Care Team (Late st Contact Info) Description 12/21/2024 9:40 AM EDT Office Visit [facility] [address] [place] [address] Neema Apodaca, HEATHER [address] [facility] [address] [place] [address] 04/15/2025 11:20 AM EST Office Visit [facility] Endocrinology [address] [place] [address] Evelin Johnson MD [address] [place] [address] Health Maintenance Due Date Last Done Comments [facility]-HIV Screening 1961 [facility]-Hepatitis C Screening 1961 [facility]-Medicare Annual Wellness (AWV) 1961 [facility]-/Child/Adol SDOH Screenings 1961 Diabetes: Dental Exam 12/04/1971 [facility]- SDOH Screenings 12/04/1979 [facility]-Adult SDOH Screenings 12/04/1979 [facility]-DTaP,Tdap,and Td Vaccines (1 - Tdap) 1980 [facility]-Pneumococcal Vaccine: 50+ Years (1 of 2 - PCV) 1980 CT Colonography 2006 Colonoscopy 2006 FIT-DNA 2006 FIT 2006 FOBT 2006 Sigmoidoscopy 2006 [facility]-Colorectal Cancer Screening 2006 [facility]-Zoster Vaccines (1 of 2) 12/04/2011 [id number] Vaccine (2 - Pfizer risk series) 09/23/2020 09/02/2020 [facility]-RSV Vaccine: 60+ Years or (1 - Risk 60-74 years 1-dose series) 2021 [facility]-Depression Screening 03/01/2024 03/01/2023 [facility]-Influenza Vaccine (#1) 2024 06/28/2019 [facility]-Diabetes: Hemoglobin A1C 04/09/202505/2024, 04/12/2024, 08/30/2023, Additional history exists [facility]-Obesity Intervention Completed 025, 08/03/2024, 04/12/2024, Additional history exists HPV Vaccines Aged Out No longer eligi ble based on patient's age to complete this topic [facility]-HIB Vaccines Aged Out No longer e ligible based on patient's age to complete this topic [facility]-Hepatitis A Vaccines Aged Out No longer eligible based on patient's age to complete this topic [facility]-IPV Vaccines Aged Out No longer e ligible based on patient's age to complete this topic [facility]-Rotavirus Vaccines Aged Out No lo nger eligible based on patient's age to complete this topic Procedures Procedure Name Priority Date/Time Associated Diagnosis Comments POCT GLYCOSYLATED HEMOGLOBIN (HGB A1C) Routine 10/10/2024 11:25 AM EDT Type 2 diabetes mellitus with other specified complication, without long-term current use of insulin ([facility]) from Last 3 Months Results * POCT glycosylated hemoglobin (Hb A1C) (10/10/2024 11:25 AM EDT) POCT Hemoglobin A1C 5.8 <5.7% Non-Diabet ic % [facility] Kit Lot Number [id number] [facility] Kit Expiration Date 06/2026 [facility] Blood Venous blood specimen / Unknown 10/10/2024 11:25 AM EDT Evelin Johnson MD POINT OF CARE TEST ENTER/EDIT ORDERABLES Final Result [facility] [address] [place] [address] from Last 3 Months Insurance [employer] [address] Care Teams Lion Trainer Relationship Specialty Start Date End Date Pcp, No [address] [place] [address] PCP - General Family Medicine 04/12/24
[2024-10-11 10:53] LABS: Cholesterol 136 mg/dl (140-200); HDL Cholesterol 29 mg/dl (40-60); Triglycerides 127 mg/dl (30-150)
== END 2024-10-11 23:59 | disposition home or self-care (01) ==
LOC: LAB 09:55
PROVIDERS: Visit Provider Internal Medicine
DX: E11.69 Type 2 diabetes mellitus with other specified complication (principal)
CPT/HCPCS: 36415; 80061

== ENCOUNTER 2024-12-17 12:03 | Outpatient (CLI) | payer MEDICARE, BC, SELFPAY ==
--- OUTSIDE RECORDS SUMMARY | 2024-12-17 12:06 | XMS_ITS | Encounter Summary ---
Author Organization Healthcare Address [address] [place] [address] Care Team Providers Care Collar Setter Name Role Phone Walter Michael MD Primary Care Provider [phone] Joshua Bee DO Primary Care Provider [phone] None, None Primary Care Provider [phone] Pcp, No Primary Care Provider Unavailabl e Reason for Visit * Reason Comments Med Refill Encounter Details Date Type Department Care Team (Late Contact Info) Description 11/30/2021 Refill [facility] Nephrology, Bone & Mineral Metabolism [address] [place] [address] Levar Allen MD [address] [place] [address] Social History Tobacco Use Types [...] Description 12/21/2024 9:40 AM EDT Office Visit [facility] [address] [place] [address] Neema Apodaca, FEDERAL JUDGE [address] [place] [address] [place] [address] 04/15/2025 11:20 AM EST Office Visit [facility] Endocrinology [address] [place] [address] Evelin Johnson MD 2195 [facility] 125 [place] [address] documented as of this encounter Visit Diagnoses Not on filedocumented in this encounter Additional Health Concerns Assessment Noted Time A fall risk assessment has been complete d for the patient 06/22/2021 1:43 PM EDT documented as of this encounter Care Teams Collar Setter Relationship Specialty Start Date End Date Walter Michael MD [address] [place] [address] [place] [address] PCP - General Family Medicine 09/26/20 10/11/22 Joshua Bee DO [address] [place], [place] [id number] PCP - General 10/12/22 12/07/22 None, None [address] [place] [address] PCP - General NONE FOUND 03/01/23 11/03/23 Pcp, No [address] [place] [address] PCP - General Family Medicine 04/12/24 documented as of this encounter
--- OUTSIDE RECORDS SUMMARY | 2024-12-17 12:06 | XMS_ITS | Encounter Summary ---
Author Organization Healthcare Address [address] [place] [address] Care Team Providers Care Cnc Grinder Name Role Phone Walter Michael MD Primary Care Provider [phone] Joshua Bee DO Primary Care Provider None, None Primary Care Provider [phone] Pcp, No Primary Care Provider Unavailabl e Reason for Visit * Reason Comments Med Refill Encounter Details Date Type Department Care Team (Late Contact Info) Description 11/19/2021 [facility] [address] [place] [address] Sonia Fong MD 2195 [facility] 125 [place] [address] Social History Tobacco Use Types [...] Description 12/21/2024 9:40 AM EDT Office Visit [facility] [address] [place] [address] Neema Apodaca, REFINERY PIPELINE OPERATOR [address] [facility] [address] [place] [address] 04/15/2025 11:20 AM EST Office Visit [facility] Endocrinology [address] [place] [address] Evelin Johnson MD [address] [place] [address] documented as of this encounter Visit Diagnoses Not on filedocumented in this encounter Additional Health Concerns Assessment Noted Time A fall risk assessment has been complete d for the patient 06/22/2021 1:43 PM EDT documented as of this encounter Care Teams Cnc Grinder Relationship Specialty Start Date End Date Walter Michael MD [address] [place] [address] [place] [address] PCP - General Family Medicine 09/26/20 10/11/22 Joshua Bee DO [address] [place], [place] [id number] PCP - General 10/12/22 12/07/22 None, None [address] [place] [address] PCP - General NONE FOUND 03/01/23 11/03/23 Pcp, No 800 [place] [address] PCP - General Family Medicine 04/12/24 documented as of this encounter
--- OUTSIDE RECORDS SUMMARY | 2024-12-17 12:06 | XMS_ITS | Encounter Summary ---
Author Organization Healthcare Address [address] [place] [address] Care Team Providers Care Bottle Line Worker Name Role Phone Walter Michael MD Primary Care Provider Joshua Bee DO Primary Care Provider [phone] None, None Primary Care Provider [phone] Pcp, No Primary Care Provider Unavailabl e Reason for Visit * Reason Comments Med Refill Encounter Details Date Type Department Care Team (Late Contact Info) Description 01/13/2021 Refill [facility] Endocrinology [address] [place] [address] Sonia Fong MD [address] [address] Social History Tobacco Use Types [...] Description 12/21/2024 9:40 AM EDT Office Visit [facility] [address] [place] [address] Neema Apodaca, MODEL DRESSER [address] [facility] [address] [place] [address] 04/15/2025 11:20 AM EST [facility] [address] [place] [address] Evelin Johnson MD 2195 [facility] [address] [place] [address] documented as of this encounter Visit Diagnoses Not on filedocumented in this encounter Care Teams Bottle Line Worker Relationship Specialty Start Date End Date Walter Michael MD [address] [place] [address] PCP - General Family Medicine 09/26/20 10/11/22 Joshua Bee DO [address] [place], [place] [phone] PCP - General 10/12/22 12/07/22 None, None [address] [place] [address] PCP - General NONE FOUND 03/01/23 11/03/23 Pcp, No 800 [place] [address] PCP - General Family Medicine 04/12/24 documented as of this encounter
--- OUTSIDE RECORDS SUMMARY | 2024-12-17 12:06 | XMS_ITS | Clinical Summary ---
Author Organization [facility] Address [address] [place] [address] Care Team Providers Care Manager Orange Name Role Phone Sonia Fong MD Primary Care Provider [phone] Allergies Active Allergy Reactions Criticality Noted Date Comments Aspirin Rash Low 06/22/2019 Medications amLODIPine (NORVASC) 10 MG tablet Take 10 mg by mouth Daily. Active pravastatin (PRAVACHOL) 40 MG tablet Take 40 mg by mouth Every Night. Active glimepiride (AMARYL) 4 MG tablet Take 4 mg by mouth Every Morning Before Breakfast. Active levothyroxine (SYNTHROID, LEVOTHROID) 50 MCG tablet Take 50 mcg by mouth Daily. Active carvedilol (COREG) 25 MG tablet Take 1 tablet by mouth 2 (Two) Times a Day With Meals. 60 tablet 1 06/27/2019 Active clopidogrel (PLAVIX) 75 MG tablet Take 1 tablet by mouth Daily. 30 tablet 1 06/27/2019 Active ferrous sulfate 325 (65 FE) MG tablet Take 1 tablet by mouth Daily With Breakfast. 30 tablet 1 06/27/2019 Active hydrALAZINE (APRESOLINE) 100 MG tablet Take 1 tablet by mouth Every 8 (Eight) Hours. 90 tablet 1 06/27/2019 Active Active Problems Problem Noted Date Diagnosed Date Hypertension 06/23/2019 TANG (dyspnea on exertion) 06/23/2019 Overview (06/23/2019): 1. Echo 06-22-19: There is moderate concentric left ventricular hypertrophy. The estimated left ventricular ejection fraction is 66% - 70%. Tobacco chew use 06/23/2019 Elevated troponin 06/22/2019 Diabetes mellitus 06/22/2019 Disease of thyroid gland 06/22/2019 Hyperlipidemia 06/22/2019 Resolved Problems Problem Noted Date Diagnosed Date Resolved Date Hypertensive emergency 06/25/201906/25 Hypertensive urgency, malignant 06/22/2019 06/26/2019 SOFIA (acute kidney injury) 06/22/2019 Social History Tobacco Use Types Packs/Day Years Used Date Smoking Tobacco: Former Smokeless Tobacco: Current Alcohol Use Standard Drinks/Week Comments Yes 0 (1 standard drink = 0.6 oz pur e alcohol) socially Abuse Screen Answer Date Recorded Unsafe at Home or Work/School Not on file Feels Threatened by Someone? Not on file 03/2023 Does Anyone Keep You from Co ntacting Others or Doint Things Outside the Home? Not on file 01/20/2023 Physical Sign of Abuse Present Not on file 1 Housing Stability Answer Date Recorded Current Living Arrangements Not on file 01/09 Potentially Unsafe Housing Conditions Not on lauren e 01/20/2023 Family and Community Support Answer Kt e Recorded Help with Day-to-Day Activities Not on file 01/20/2023 Lonely or Isolated Not on file 01/20/2023 Employment Answer Date Recorded Do you want help finding or keeping work or a fidelia b? Not on file 01/20/2023 Disabilities Answer Date Recorded Concentrating, Remembering, or Making Decisions Difficulty Not on file 01/20/2023 Doing Errands Independently Difficulty Not on fi le 01/20/2023 Education Answer Date Recorded Help with school or training? Not on file Preferred Language Not on file 01/20/2023 Sex and Gender Information Value Date Recorded Sex Assigned at Not on file Legal Sex Male 12:55 PM EDT Gender Identity Not on file Sexual Orientation Not on file Last Filed Vital Signs Vital Sign Reading Time Taken Comments Blood Pressure 141/82 06/26/2019 11:04 AM EDT Pulse 72 06/26/2019 2:00 PM EDT Temperature 36.6 C (97.9 F) 06/26/2019 11:04 AM EDT Respiratory Rate 18 06/26/2019 11:04 AM EDT Oxygen Saturation 94% 06/26/2019 11:04 AM EDT Inhaled Oxygen Concentration - - Weight 109 kg (240 lb) 06/22/2019 6:00 PM EDT Height 183 cm (6' 0.05 ) 06/22/2019 6:00 PM EDT Body Mass Index 32.51 06/22/2019 6:00 PM EDT Plan of Treatment Health Maintenance Due Date Last Done Comments TDAP/TD VACCINES (1 - Tdap) 1980 COLOGUARD 2006 COLON CANCER SCREENING 5 YEA R SIGMOIDOSCOPY 2006 COLONOSCOPY 2006 COLOR[address]AL CANCER SCREENING 2006 CT COLONOGRAPHY 2006 FECAL OCCULT BLOOD TEST 2006 FIT Testing (1 year) 2006 Pneumococcal Vaccine 50+ (1 of 1 - PCV) 12/04/2011 ZOSTER VACCINE (1 of 2) 12/04/2011 ANNUAL PHYSICAL 06/27/2019 HEPATITIS C SCREENING 06/27/2019 LIPID PANEL 08/29/2024 08/30/2023, 06/23/2019 COVID-19 Vaccine (1 - 2023-2 5 season) 2024 INFLUENZA VACCINE 01/09/2025 HEMOGLOBIN A1C Discontinued 10/10/2024, 05/2024, 08/30/2023, Additional history exists Procedures Procedure Name Priority Date/Time Associated Diagnosis Comments LIPID PANEL Routine 06/23/2019 3:08 AM EDT HEMOGLOBIN A1C STAT 06/22/2019 1:22 PM EDT from Last 3 Months or Most Recently Relevant to Health Maintenance Results * (ABNORMAL) Lipid Panel (06/23/2019 3:08 AM EDT) Total Cholesterol 190 0 - 200 mg/dL 06/23/2019 4:09 AM EDT [facility] Triglycerides 259(H) 0 - 150 mg/dL 06/23/2019 4:09 AM EDT [facility] HDL Cholesterol 29(L) 40 - 60 mg/dL 06/23/2019 4:09 AM EDT [facility] LDL Cholesterol 109(H) 0 - 100 mg/dL 06/23/2019 4:09 AM EDT [facility] VLDL Cholesterol 51.8 mg/dL 06/23/19 20 4:09 AM EDT [facility] LDL/HDL Ratio 3.77 06/23/2019 4:09 AM EDT [facility] Blood Line / Unknown 06/23/2019 3: 08 AM EDT 06/23/2019 3:41 AM EDT Narrative [facility] - 06/23/2019 4:09 AM EDT Cholesterol Reference Ranges (U.S. Department of Health and Human Services ATP III Classifications) Desirable <200 mg/dL Borderline High 200-239 mg/dL High Risk >240 mg/dL Triglyceride Reference Ranges (U.S. Department of Health and Human Services ATP III Classifications) Normal <150 mg/dL Borderline High 150-199 mg/dL High 200-499 mg/dL Very High >500 mg/dL HDL Reference Ranges (U.S. Department of Health and Human Services ATP III Classifcations) Low <40 mg/dl (major risk factor for CHD) High >60 mg/dl ('negative' risk factor for CHD) LDL Reference Ranges (U.S. Department of Health and Human Services ATP III Classifcations) Optimal <100 mg/dL Near Optimal 100-129 mg/dL Borderline High 130-159 mg/dL High 160-189 mg/dL Very High >189 mg/dL Nicole Oropeza APRN LAB BLOOD ORDERABLES Final Res ult [facility]
[address] [place] [address], * (ABNORMAL) Hemoglobin A1c (06/22/2019 1:22 PM EDT) Hemoglobin A1C 7.70(H) 4.80 - 5.60 % 06/22/2019 3:16 PM EDT [facility] Blood Line / Unknown 06/22/2019 1: 22 PM EDT 06/22/2019 1:27 PM EDT Narrative [facility] - 06/22/2019 3:16 PM EDT Hemoglobin A1C Ranges: Increased Risk for Diabetes 5.7% to 6.4% Diabetes >= 6.5% Diabetic Goal < 7.0% Nicole Oropeza PHOTOGRAPH EDITOR LAB BLOOD ORDERABLES Final Res ult [facility]
[address] [place] [address], from Last 3 Months or Most Recently Relevant to Health Maintenance Insurance [facility] PPO Advance Directives * CPR (Attempt to Resuscitate) (Latest Code Status on File) Date Activated Date Inactivated Comments 06/22/2019 2:38 PM 06/26/2019 5:49 PM Question Answer Comments Code Status (Patient has no pulse and is not breathing): CPR (Attempt to Resuscitate) Medical Interventions (Patie nt has pulse or is breathing): Full Level Of Support Discussed With: Patient Care Teams Manager Orange Relationship Specialty Start Date End Date Sonia Fong MD [address] [place] [address] PCP - General Internal Medicine 06/22/19
--- OUTSIDE RECORDS SUMMARY | 2024-12-17 12:06 | XMS_ITS | Encounter Summary ---
Author Organization Healthcare Address [address] [place] [address] Care Team Providers Care Rn Radiology Name Role Phone aWlter Michael MD Primary Care Provider Joshua Bee DO Primary Care Provider [phone] None, None Primary Care Provider [phone] Pcp, No Primary Care Provider Unavailabl e Reason for Visit * Reason Comments Med Refill Encounter Details Date Type Department Care Team (Late Contact Info) Description 04/08/2022 [facility] [address] [place] [address] Sonia Fong MD [address] [address] Type 2 diabetes mellitus without complication, with long-term current use of insulin ([facility]) (Primary Dx) Social History Tobacco Use [...] Description 12/21/2024 9:40 AM EDT Office Visit [facility] [address] [place] [address] Neema Apodaca, FARM LABOR CONTRACTOR [address] [facility] [address] [place] [address] 04/15/2025 11:20 AM EST [facility] [address] [place] [address] Evelin Johnson MD 2[address] [facility] [address] [place] [address] documented as of this encounter Visit Diagnoses Diagnosis Type 2 diabetes mellitus without complication, with long-term current use of insulin- Primary documented in this encounter Additional Health Concerns Assessment Noted Time A fall risk assessment has been complete d for the patient 06/22/2021 1:43 PM EDT documented as of this encounter Care Teams Rn Radiology Relationship Specialty Start Date End Date Walter Michael MD [address] [place] [address] Dr Ten[address] [place] [phone] PCP - General Family Medicine 09/26/20 10/11/22 Joshua Bee DO [address] [place] [address] PCP - General 10/12/22 12/07/22 None, None [address] [place] [address] PCP - General NONE FOUND 03/01/23 11/03/23 Pcp, No [address] [place] [id number] PCP - General Family Medicine 04/12/24 documented as of this encounter
--- OUTSIDE RECORDS SUMMARY | 2024-12-17 12:06 | XMS_ITS | Encounter Summary ---
Author Organization Healthcare Address [address] [place] [address] Care Team Providers Care Police Commissioner Name Role Phone Walter Michael MD Primary Care Provider [phone] Joshua Bee DO Primary Care Provider [phone] None, None Primary Care Provider Pcp, No Primary Care Provider Unavailabl e Reason for Visit * Reason Comments Med Refill Encounter Details Date Type Department Care Team (Late Contact Info) Description 04/13/2021 [facility] [address] [place] [address] Sonia Fong MD 2[address] [facility] [address] [place] [address] Social History Tobacco Use Types [...] Description 12/21/2024 9:40 AM EDT Office Visit [facility] [address] [place] [address] Neema Apodaca, IMPROVEMENT LEAD [address] [facility] [address] [place] [address] 04/15/2025 11:20 AM EST [facility] [address] [place] [address] Evelin Johnson MD [address] [address] documented as of this encounter Visit Diagnoses Not on filedocumented in this encounter Additional Health Concerns Assessment Noted Time A fall risk assessment has been complete d for the patient 01/21/2021 9:11 AM EDT documented as of this encounter Care Teams Police Commissioner Relationship Specialty Start Date End Date Walter Michael MD [address] [place] [address] Dr Ten[address] [place] [phone] PCP - General Family Medicine 09/26/20 10/11/22 Joshua Bee DO [address] [place] [phone] PCP - General 10/12/22 12/07/22 None, None [address] [place] [address] PCP - General NONE FOUND 03/01/23 11/03/23 Pcp, No [address] [place] [address] PCP - General Family Medicine 04/12/24 documented as of this encounter
--- OUTSIDE RECORDS SUMMARY | 2024-12-17 12:06 | XMS_ITS | Encounter Summary ---
Author Organization Healthcare Address [address] [place] [address] Care Team Providers Care Lining Stuffer Name Role Phone Walter Michael MD Primary Care Provider [phone] Joshua Bee DO Primary Care Provider None, None Primary Care Provider [phone] Pcp, No Primary Care Provider Unavailabl e Reason for Visit * Reason Comments Med Refill Encounter Details Date Type Department Care Team (Late st Contact Info) Description 10/05/2022 [facility] [address] [place] [address] Sonia Fong MD [address] [address] Type 2 diabetes mellitus without complication, with long-term current use of insulin ([facility]) Social History Tobacco Use Types Packs/Day [...] 90 day supply with 0 refill(s) to [facility]. documented in this encounter Plan of Treatment Upcoming Encounters Date Type Department Care Team (Late st Contact Info) Description 12/21/2024 9:40 AM EDT Office Visit [facility] [address] [place] [address] Neema Apodaca, LABORATORY SAMPLE CARRIER [address] [facility] [address] [place] [address] 04/15/2025 11:20 AM EST Office Visit [facility] Endocrinology [address] [place] [address] Evelin Johnson MD 2195 [facility] [address] [place] [address] documented as of this encounter [...] documented as of this encounter Care Teams Lining Stuffer Relationship Specialty Start Date End Date Walter Michael MD [address] [place] [address] [place] [address] PCP - General Family Medicine 09/26/20 10/11/22 Joshua Bee DO [address] [place] [address] [phone] PCP - General 10/12/22 12/07/22 None, None [address] [place] [address] PCP - General NONE FOUND 03/01/23 11/03/23 Pcp, No [address] [place] [address] PCP - General Family Medicine 04/12/24 documented as of this encounter
--- OUTSIDE RECORDS SUMMARY | 2024-12-17 12:06 | XMS_ITS | Encounter Summary ---
Author Organization Healthcare Address [address] [place] [address] Care Team Providers Care New Autos Delivery Driver Name Role Phone Pcp, No Primary Care Provider Unavailabl e Reason for Visit * Reason Comments Med Refill Encounter Details Date Type Department Care Team (Late st Contact Info) Description 11/05/2024 [facility]ill [facility] [address] [place] [address] Evelin Johnson MD 2195 [facility] [address] [place] [address] Type 2 diabetes mellitus without complication, with long-term current use of insulin Social History Tobacco Use Types Packs/Day Years [...] encounter Miscellaneous Notes * Telephone Encounter - Taniya Kelly - 11/05/2024 11:34 AM EDT 2 medication(s) has been approved per protocol. documented in this encounter Plan of Treatment Upcoming Encounters Date Type Department Care Team (Late st Contact Info) Description 12/21/2024 9:40 AM EDT Office Visit [facility] [address] [place] [address] Neema Apodaca, MINE ENVIRONMENTAL ENGINEER [address] [facility] [address] [place] [address] 04/15/2025 11:20 AM EST Office [facility] Endocr[facility]ology [address] [place] [address] Evelin Johnson MD [address] [place] [address] documented as of this encounter [...] documented as of this encounter Care Teams New Autos Delivery Driver Relationship Specialty Start Date End Date Pcp, [place] [address] PCP - General Family Medicine 04/12/24 documented as of this encounter
--- OUTSIDE RECORDS SUMMARY | 2024-12-17 12:06 | XMS_ITS | Clinical Summary ---
Author Organization [facility] Address [address] [place] [address] Care Team Providers Care Site Damage Prevention Technician Name Role Phone Pcp, No Primary Care [...] additional refills. 90 tablet 3 5 Active cholecalciferol (Vitamin D-3) 125 MCG (5000 UT) capsule Take 1 capsule by mouth daily. 30 capsule 11 5 08/04/19 26 Active atorvastatin (Lipitor) 40 MG tabletIndications :Type 2 diabetes mellitus with other specified complication, without long-term current use of insulin (CMS/HCC) Take 1 tablet by mouth nightly. 90 tablet 3 5 08/04/19 26 Active dapagliflozin (Farxiga) 10 MG tablet Take 1 tablet by mouth daily. 90 tablet 3 Active NIFEdipine CC (Adalat CC) 60 MG 24 hr tablet Take 1 tablet by mouth 2 times a day. Do not crush, chew, or split. 180 tablet 3 5 08/04/19 26 Active valsartan (Diovan) 80 MG tabletIndications :Essential (primary) hypertension Take 1 tablet by mouth daily. 30 tablet Active carvedilol (Coreg) 25 MG tablet Take 1 tablet by mouth 2 times a day with meals. 180 tablet 3 5 08/04/19 Active sodium bicarbonate 650 MG tabletIndications :CKD (chronic kidney disease) stage 4, GFR 15-29 ml/min (CMS/HCC),Metabol ic acidosis Take 1 tablet by mouth 2 times a day. 60 tablet 11 5 08/04/19 Active pen needle, diabetic (Embecta Pen Needle Ultrafine) 31G X 5 MM miscIndications:T ype 2 diabetes mellitus without complication, with long-term current use of insulin USE 2 PEN NEEDLES DAILY 180 each 1 Active glucose blood (Baanto InternationalTouch Ultra) test stripIndications: Type 2 diabetes mellitus without complication, with long-term current use of insulin USE TO TEST 3 TO 4 TIMES DAILY 400 strip 5 5 Active Active Problems Problem Noted Date Diagnosed Date Neuropathy 08/30/2023 Obesity (BMI 35.0-39.9 without comorbidity) 06/09 Severe obesity (BMI 35.0-39.9) with comorbidity 06/18/2022 Type 2 diabetes mellitus, wi thout long-term current use of insulin 06/18/2022 Abnormal thyroid blood test 06/18/2022 Vitamin D deficiency 08/21/2020 Venous stasis 06/28/2019 Tobacco chew use 06/23/2019 CKD (chronic kidney disease) stage 3, GFR 30-59 ml/min 02/23/2017 Proteinuria 01/11/2017 Diabetes mellitus type 2 with neurological manif estations 02/21/2013 Hypothyroidism 02/16/2013 Hyperlipidemia 02/16/2013 Essential (primary) hypertension 02/16/2013 Encounters Date Type Department Care Team Description 11/05/2024 Refill [facility] Endocrinology [address] [place] [address] Evelin Johnson MD Type 2 diabetes mellitus without complication, with long-term current use of insulin 10/11/2024 Results Follow-Up [facility] Endocrinology [address] [place] [address] Evelin Johnson MD 10/11/2024 Orders Only [facility] Endocrinology [address] [place] [address] Evelin Johnson MD 10/10/2024 11:20 AM EDT Office Visit [facility] Endocrinology [address] [place] [address] Evelin Johnson MD Type 2 diabetes mellitus with other specified complication, without long-term current use of insulin ([facility]) (Primary Dx) 10/10/2024 Travel from Last 3 Months Immunizations Immunization [...] Description 12/21/2024 9:40 AM EDT Office Visit [facility] [address] [place] [address] Neema Apodaca, ASSEMBLER FOR PULLER OVER HAND [address] [facility] [address] [place] [address] 04/15/2025 11:20 AM EST Office Visit [facility] [address] [place] [address] Evelin Johnson MD [address] [place] [address] Health Maintenance Due Date Last Done Comments [facility]-HIV Screening 1961 [facility]-Hepatitis C Screening 1961 [facility]-Medicare Annual Wellness (AWV) 1961 [facility]-Infant/Child/Adol SDOH Screenings 1961 Diabetes: Dental Exam 12/04/1971 [facility]- SDOH Screenings 12/04/1979 [facility]-Adult SDOH Screenings 12/04/1979 [facility]-DTaP,Tdap,and Td Vaccines (1 - Tdap) 1980 [facility]-Pneumococcal Vaccine: 50+ Years (1 of 2 - PCV) 1980 CT Colonography 2006 Colonoscopy 2006 FIT-DNA 2006 FIT 2006 FOBT 2006 Sigmoidoscopy 2006 [facility]-Colorectal Cancer Screening 2006 [facility]-Zoster Vaccines (1 of 2) 12/04/2011 [id number] Vaccine (2 - Pfizer risk series) 09/23/2020 [...] Name Priority Date/Time Associated Diagnosis Comments LIPID PROFILE, PLASMA Routine 10/11/2024 1:35 PM EDT POCT GLYCOSYLATED HEMOGLOBIN (HGB A1C) Routine 10/10/2024 11:25 AM EDT Type 2 diabetes mellitus with other specified complication, without long-term current use of insulin ([facility]) from Last 3 Months Results * Lipid Profile, Plasma (10/11/2024 1:35 PM EDT) Blood Venous blood specimen / Unknown us Evelin Johnson MD LAB BLOOD ORDERABLES Final Res ult * POCT glycosylated hemoglobin (Hb A1C) (10/10/2024 11:25 AM EDT) POCT Hemoglobin A1C 5.8 <5.7% Non-Diabet ic % [facility] Kit Lot Number [id number] [facility] Kit Expiration Date 06/2026 [facility] Blood Venous blood specimen / Unknown 10/10/2024 11:25 AM EDT Evelin Johnson MD POINT OF CARE TEST ENTER/EDIT ORDERABLES Final Result [facility] [address] [place] [address] from Last 3 Months Insurance [facility] Care Teams Site Damage Prevention Technician Relationship Specialty Start Date End Date Pcp, No [address] [place] [address] PCP - General Family Medicine 04/12/24
[2024-12-17 13:05] LABS: Hematocrit 42.5 % (42.0-52.0); Hemoglobin 13.9 g/dL (14.1-18.0); Mean Corpuscular HGB Conc 32.7 g/dL (31.8-35.4); Mean Corpuscular Hemoglobin 29.9 pg (27.0-31.2); Mean Corpuscular Volume 91.4 fl (80-94); Nucleated Red Blood Cells % 0 %; Platelet Count 214 K/mm3 (142-424); Red Blood Count 4.65 M/mm3 (4.60-6.20); Red Cell Distribution Width-SD 44.6 fL; White Blood Count 8.2 K/mm3 (4.8-10.8)
[2024-12-17 13:16] LABS: Albumin Level 3.9 g/dl (3.5-5.0); Chloride 111 mmol/L (98-107); Potassium 5.0 mmoL/L (3.5-5.1); Sodium 141 mmol/L (136-145)
[2024-12-17 13:19] LABS: Anion Gap 14.0 mEq/L (5-15); Blood Urea Nitrogen 44 mg/dl (9-20); Calcium 8.9 mg/dl (8.4-10.2); Carbon Dioxide 21 mmol/L (22.0-30.0); Creatinine,Serum 2.60 mg/dl (0.66-1.25); Estimated Glomerular Filt Rate 25 ml/min (>60); GFR (African American) 30 ML/MIN (>60); Glucose 128 mg/dl (74-100); Phosphorous 4.5 mg/dl (2.5-4.5)
[2024-12-17 13:34] LABS: 25-OH Vitamin D, Total 95.2 ng/mL (30-100)
[2024-12-17 13:45] LABS: Microscopic, Urine URINE MICROSCOPIC (MICROSCOPIC)
[2024-12-17 16:04] LABS: Bilirubin,Urine Negative (Negative); Color,Urine YELLOW (Yellow); Glucose,Urine (UA) 3+ (Negative); Ketones,Urine Negative (Negative); Leukocyte Esterase,Urine Negative (Negative); PH,Urine 5.5 (5.0-8.5); Protein,Urine TRACE (Negative); Specific Gravity, Urine 1.020 (1.005-1.030); Urobilinogen,Urine 0.2 EU/dl (0.2)
[2024-12-17 17:27] LABS: Bacteria,Urine Trace /lpf; Squamous Epithelial Cell,Urine Occasional #/hpf (0-5)
== END 2024-12-17 23:59 | disposition home or self-care (01) ==
LOC: LAB 12:05
PROVIDERS: Visit Provider Nurse Practitioner
DX: N18.4 Chronic kidney disease, stage 4 (severe) (principal)
CPT/HCPCS: 36415; 80069; 81001; 82306; 82570; 83970; 84156; 85027